=== PATIENT | female | born 1965 | race Caucasian/White ===

== ENCOUNTER 2018-11-07 06:16 | Day surgery (SDC) | payer OTHER, SELFPAY ==
[2018-10-27 13:56] VITALS: BMI 35.2
[2018-11-07] VITALS (10 sets, daily range): BP systolic 115–130; BP diastolic 66–81; PULSE 51–76; RESP 12–21; TEMP 35.9–37.4; O2SAT 95–100; BMI 33.7
[2018-11-07] MEDS: LACTATED RINGERS 1,000 ML 42 ML IV (07:26)
--- NOTE | 2018-11-07 07:40 | PM.PREOP ---
Pre-operative Note Interval Note History & Physical reviewed/Exam performed by Physician: Yes Changes to H&P: No
--- NOTE | 2018-11-07 08:07 | SUR.OPER ---
Supine on padded OR bed, head on pillow, arms secured on padded arm boards at <90 degrees abduction, legs uncrossed, safety belt at thigh, tape over blanket over lower legs.lateral knee brace on right side at thigh
[2018-11-07] MEDS: BUPIVACAINE 0.5% W/ EPI (PF) VIAL 60 ML INJ (08:13)
--- NOTE | 2018-11-07 08:40 | SUR.PHASEI ---
to PACU A&O, vSS, Spoke with Dr. Mccormick and anesthesia, dozing, sat decreased to 91%, put on O2 at 2LNP; quickly up to 100%, so it was reduced to 1LNP. Arouses easily.
--- NOTE | 2018-11-07 08:42 | PM.OP.1 ---
Operative Date/Time/Diagnoses Date of procedure: 11/07/18 Time of procedure: 08:43 Pre-op diagnosis: Right medial and lateral meniscus tears Post-op diagnosis: other (Hypertrophic synovial plica, chondral lesion medial and lateral femoral chondral lesions) Procedure & Clinicians Procedure: Right knee arthroscopy with 1. partial medial and lateral meniscectomies (CPT code 71541) 2. Partial synovectomy (CPT code 11897) 3. Medial and lateral femoral chondroplasty Same procedure as scheduled: Yes Indications: 53-year-old female with right knee pain and swelling particularly after activity. History and exam suggestive of lateral meniscus tear and probable medial meniscus tear. MRI scan confirms as well as demonstrating some chondral thinning and probable chondromalacia both medial and lateral femoral condyles. we discussed the nature of condition, differential diagnosis, prognosis, and options. Patient elected proceed with arthroscopic evaluation and treatment and gives informed consent. 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 Hypertrophic synovial plica in the patellofemoral compartment. Fairly large full-thickness chondral lesion on the medial femoral condyle covering approximately 2/3 of the width of the condyle and extending approximately 2 cm from front to back. There is a loose articular cartilage flap based posteriorly. medial meniscus largely intact with the exception of a small flap tear of the anterior horn. Notch demonstrates attenuation of the anterior cruciate with the PCL intact. lateral compartment demonstrates normal articular cartilage with the exception of an approximately 6 x 8 mm chondral lesion with loose articular cartilage flaps on the medial aspect of the lateral femoral condyle. Complex tear of the anterior horn and midbody of the lateral meniscus. Closure Type: primary Specimen(s): none sent Estimated Blood Loss (mL): 5 Blood products transfused: none Tourniquet time (min): 0 Procedure in detail: Patient brought to the operating room and after satisfactory induction of a spinal anesthetic was placed supine on the OR table. right lower extremity prepped and draped in the usual sterile fashion. medial and lateral parapatellar portals created after infiltrating with Marcaine. Arthroscope introduced through the lateral parapatellar portal, an arthroscopic examination performed with the above-noted findings. Partial medial and lateral meniscectomies performed using combination basket forceps and shaver back to smooth and stable rim. Chondroplasty performed with the shaver on both medial and lateral condyles back to smooth and stable articular cartilage. Hypertrophic synovitis and hypertrophic synovial plica was shaved back to normal-appearing synovium with the shaver. The knee was irrigated and drained and wounds closed with Steri-Strips. Sterile dressings applied after reinflate traction with Marcaine. anesthetic terminated and the patient taken to postanesthetic recovery in satisfactory condition. Complications: none Condition: stable Disposition: PACU Plan for aftercare: Discharge home when stable from PACU, routine postoperative care and activities including weight-bearing as tolerated. Follow up in office in 2 weeks.
--- NOTE | 2018-11-07 08:48 | SUR.PHASEI ---
C\o being cold, warm blankets given, no nausea - tolerating po well. stable.
--- NOTE | 2018-11-07 08:53 | P.OP_ITS ---
Operative Date/Time/Diagnoses Date of procedure: 11/07/18 Time of procedure: 08:43 Pre-op diagnosis: Right medial and lateral meniscus tears Post-op diagnosis: other (Hypertrophic synovial plica, chondral lesion medial and lateral femoral chondral lesions) Procedure & Clinicians Procedure: Right knee arthroscopy with 1. partial medial and lateral meniscectomies (CPT code 87387) 2. Partial synovectomy (CPT code 85684) 3. Medial and lateral femoral chondroplasty Same procedure as scheduled: Yes Indications: 53-year-old female with right knee pain and swelling particularly after activity. History and exam suggestive of lateral meniscus tear and proba ble medial meniscus tear. MRI scan confirms as well as demonstrating some chondral thinning and probable chondromalacia both medial and lateral femoral condyles. we discussed the nature of condition, differential diagnosis, prognosis, and options. Patient elected proceed with arthroscopic evaluation and treatment and gives informed consent. 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 Hypertrophic synovial plica in the patellofemoral compartment. Fairly large full-thickness chondral lesion on the medial femoral condyle covering approximately 2/3 of the width of the condyle and extending approximately 2 cm from front to back. There is a loose articular cartilage flap based posteriorly. medial meniscus largely intact with the exception of a small flap tear of the anterior horn. Notch demonstrates attenuation of the anterior cruciate with the PCL intact. lateral compartment demonstrates normal articular cartilage with the exception of an approximately 6 x 8 mm chondral lesion with loose articular cartilage flaps on the medial aspect of the lateral femoral condyle. Complex tear of the anterior horn and midbody of the lateral meniscus. Closure Type: primary Specimen(s): none sent Estimated Blood Loss (mL): 5 Blood products transfused: none Tourniquet time (min): 0 Procedure in detail: Patient brought to the operating room and after satisfactory induction of a spinal anesthetic was placed supine on the OR table. right lower extremity prepped and draped in the usual sterile fashion. medial and lateral parapatellar portals created after infiltrating with Marcaine. Arthroscope introduced through the lateral parapatellar portal, an arthroscopic examination performed with the above-noted findings. Partial medial and lateral meniscectomies performed using combination basket forceps and shaver back to smooth and stable rim. Chondroplasty performed with the shaver on both medial and lateral condyles back to smooth and stable articular cartilage. Hypertrophic synovitis and hypertrophic synovial plica was shaved back to normal-appearing synovium with the shaver. The knee was irrigated and drained and wounds closed with Steri-Strips. Sterile dressings applied after reinflate traction with Marcaine. anesthetic terminated and the patient taken to postanesthetic recovery in satisfactory condition. Complications: none Condition: stable Disposition: PACU Plan for aftercare: Discharge home when stable from PACU, routine postoperative care and activities including weight-bearing as tolerated. Follow up in office in 2 weeks.
== END 2018-11-07 12:00 | disposition home or self-care (01) ==
PROVIDERS: PCP Family Medicine; Visit Provider Orthopaedic Surgery
PROC: (CPT 29870; principal; 2018-11-07 07:45)
DX: S83.281A Other tear of lateral meniscus, current injury, right knee, initial encounter (principal); M22.41 Chondromalacia patellae, right knee; M17.11 Unilateral primary osteoarthritis, right knee; M67.51 Plica syndrome, right knee
CPT/HCPCS: 29880; J2250; J3010